=== PATIENT | male | born 1945 | race Caucasian/White ===

== ENCOUNTER 2022-03-08 11:26 | Emergency (ER) | payer OTHER ==
[2022-03-08 11:37] VITALS: BP 140/94
[2022-03-08 11:56] LABS: BASOPHILS % (AUTO) 0.8 % (0.0-5.0); EOSINOPHILS % (AUTO) 0.6 % (0.0-8.0); HEMATOCRIT 33.8 % (42-54); LYMPHOCYTES % (AUTO) 15.4 % (21.0-51.0); MEAN CORPUSCULAR HGB CONC 32.2 g/dL (32.0-36.0); MONOCYTES % (AUTO) 6.6 % (3.0-13.0); NEUTROPHILS % (AUTO) 76.2 % (40.0-77.0); PLATELET COUNT (AUTO) 284 K/uL (130-400); RED BLOOD CELL COUNT(AUTO) 3.52 MIL/uL (4.50-6.20); RED CELL DISTRIBUTION WIDTH 14.5 % (11.0-15.5); WHITE BLOOD COUNT (AUTO) 7.7 K/uL (4.8-10.8)
[2022-03-08 11:59] LABS: APPEARANCE,URINE CLEAR (CLEAR); BILIRUBIN,URINE NEGATIVE (NEGATIVE); COLOR,URINE DARK-YELLOW (YELLOW); GLUCOSE, URINE (UA) NEGATIVE (NEGATIVE); KETONES,URINE NEGATIVE (NEGATIVE); LEUKOCYTE ESTERASE ,URINE 75 Leu/uL (NEGATIVE); NITRATE,URINE NEGATIVE (NEGATIVE); OCCULT BLOOD,URINE NEGATIVE (NEGATIVE); PROTEIN,URINE 20 mg/dL (NEGATIVE); UROBILINOGEN,URINE 0.2 mg/dL (0.2-1.0)
[2022-03-08 12:03] LABS: CREATININE 1.6 mg/dL (0.5-1.5); POTASSIUM 3.4 mmol/L (3.5-5.1)
[2022-03-08 12:07] LABS: ALBUMIN 3.1 g/dL (3.5-5.0); MAGNESIUM 1.7 mg/dL (1.80-2.40)
[2022-03-08 12:15] LABS: BACTERIA,URINE RARE /HPF (None Seen); CALCIUM OXALATE CRYSTALS,UR RARE /LPF (None Seen); MUCUS,URINE RARE LPF (None Seen); SQUAMOUS EPITHELIAL CELL,UR RARE /HPF (0-2)
[2022-03-08 12:22] LABS: B-TYPE NATRIURETIC PEPTIDE 199 pg/mL (0-100)
[2022-03-08] MEDS ORDERED: POTASSIUM BICARB/CIT AC 25 MEQ TABLET.EFF ONE (13:22)
[2022-03-08] MEDS ORDERED: MAGNESIUM OXIDE 400 MG TABLET PO ONE ×2 (13:22→13:30)
[2022-03-08] MEDS ORDERED: POTASSIUM BICARB/CIT AC 25 MEQ TABLET.EFF PO ONE (13:30)
[2022-03-08] MEDS ORDERED: LINA72CA PO (13:50)
[2022-03-08] MEDS ORDERED: METH-662 PO (13:50)
== END 2022-03-08 14:13 | disposition home or self-care (01) ==
LOC: EDH 11:26
DX: S39.012A Strain of muscle, fascia and tendon of lower back, initial encounter (principal); K59.00 Constipation, unspecified; I48.91 Unspecified atrial fibrillation; I10 Essential (primary) hypertension; Z79.01 Long term (current) use of anticoagulants; Z88.2 Allergy status to sulfonamides; Z91.030 Bee allergy status; Z88.8 Allergy status to other drugs, medicaments and biological substances; Z90.89 Acquired absence of other organs; Z98.890 Other specified postprocedural states; X58.XXXA Exposure to other specified factors, initial encounter; Y93.89 Activity, other specified; Y92.89 Other specified places as the place of occurrence of the external cause; Y99.8 Other external cause status
CPT/HCPCS: 36415; 74176; 80053; 81001; 83735; 83880; 84484; 85025; 87088; 93005

== ENCOUNTER 2022-03-14 09:16 | Emergency (ER) | payer OTHER, MEDICARE ==
[~2022-03-14] VITALS: Ht 175.3 cm; Wt 86.6 kg
[~2022-03-14 09:16] MED LIST: LINA72CA PO; METH-662 PO
[2022-03-14 09:54] LABS: APPEARANCE,URINE CLEAR (CLEAR); BILIRUBIN,URINE NEGATIVE (NEGATIVE); COLOR,URINE DARK-YELLOW (YELLOW); GLUCOSE, URINE (UA) NEGATIVE (NEGATIVE); KETONES,URINE NEGATIVE (NEGATIVE); LEUKOCYTE ESTERASE ,URINE 250 Leu/uL (NEGATIVE); NITRATE,URINE NEGATIVE (NEGATIVE); OCCULT BLOOD,URINE NEGATIVE (NEGATIVE); PH,URINE 5.5 (5.0-8.0); PROTEIN,URINE 30 mg/dL (NEGATIVE)
[2022-03-14 10:03] LABS: BASOPHILS % (AUTO) 0.9 % (0.0-5.0); EOSINOPHILS % (AUTO) 1.9 % (0.0-8.0); HEMATOCRIT 31.9 % (42-54); LYMPHOCYTES % (AUTO) 18.3 % (21.0-51.0); MEAN CORPUSCULAR HEMOGLOBIN 31.1 pg (27.0-33.0); MEAN CORPUSCULAR HGB CONC 32.3 g/dL (32.0-36.0); MEAN CORPUSCULAR VOLUME 96.4 fL (79-99); MONOCYTES % (AUTO) 6.5 % (3.0-13.0); NEUTROPHILS % (AUTO) 72.2 % (40.0-77.0); PLATELET COUNT (AUTO) 275 K/uL (130-400); RED BLOOD CELL COUNT(AUTO) 3.31 MIL/uL (4.50-6.20); RED CELL DISTRIBUTION WIDTH 14.4 % (11.0-15.5); WHITE BLOOD COUNT (AUTO) 6.5 K/uL (4.8-10.8)
[2022-03-14 10:05] LABS: MUCUS,URINE RARE LPF (None Seen)
[2022-03-14 10:23] LABS: CREATININE 1.3 mg/dL (0.5-1.5); POTASSIUM 4.1 mmol/L (3.5-5.1)
[2022-03-14 10:28] LABS: ALBUMIN 2.9 g/dL (3.5-5.0); CRP QUANTITATIVE 17.7 mg/L (0.00-9.0); TOTAL PROTEIN, SERUM 9.8 g/dL (6.0-8.3)
[2022-03-14] MEDS ORDERED: MORPHINE 4 MG SYG IM ONE (10:30)
[2022-03-14] MEDS ORDERED: ONDANSETRON 4MG INJ IVP ONE (10:30)
[2022-03-14] MEDS ORDERED: APIX5TAB PO (10:48)
[2022-03-14] MEDS ORDERED: LOSA1TAB37 PO (10:49)
[2022-03-14] MEDS ORDERED: MORPHINE 4 MG SYG IVP ONE (11:00)
[2022-03-14 11:15] LABS: ERYTHROCYTE SEDIMENTATION RATE 86 MM/HR (0-20)
[2022-03-14] MEDS ORDERED: MORPHINE 2 MG SYG ONE (11:41)
[2022-03-14] MEDS ORDERED: MORPHINE 2 MG SYG IVP ONE ×3 (12:00→14:30)
[2022-03-14] MEDS ORDERED: DEXAMETHASONE SOD PHOSPHATE 4 MG/ML 1ML VIAL IVP ONE (14:00)
[2022-03-14] MEDS ORDERED: DEXAMETHASONE SOD PHOSPHATE 10MG/ML 1ML VIAL ONE (14:07)
[2022-03-14] MEDS ORDERED: DEXAMETHASONE SOD PHOSPHATE 10MG/ML 1ML VIAL IVP ONE (14:30)
[2022-03-14 17:35] VITALS: BP 114/66
== END 2022-03-14 18:04 | disposition short-term general hospital (02) ==
LOC: EDH 09:16
DX: G95.29 Other cord compression (principal); M89.9 Disorder of bone, unspecified; R53.1 Weakness; Z20.822 Contact with and (suspected) exposure to COVID-19; I48.91 Unspecified atrial fibrillation; I10 Essential (primary) hypertension; Z88.8 Allergy status to other drugs, medicaments and biological substances; Z88.2 Allergy status to sulfonamides; Z91.030 Bee allergy status; Z79.899 Other long term (current) drug therapy; Z79.01 Long term (current) use of anticoagulants; Z86.718 Personal history of other venous thrombosis and embolism; Z90.89 Acquired absence of other organs; Z98.890 Other specified postprocedural states
CPT/HCPCS: 72148; 99285; 96374; 71045; 96375; 87635; 80053; 85025; 85651; 87088; 86140; 81001; 36415; 72146; 96376; 93005; J1100 ×2; C9803; J2405; J2270